=== PATIENT | female | born 1995 | race Caucasian/White ===

== ENCOUNTER 2017-05-06 01:44 | Inpatient (IN) | payer MEDICAID ==
[~2017-05-06] VITALS: Ht 152.4 cm; Wt 55.3 kg
[2017-05-06] MEDS ORDERED: OXYTOCIN/NORMAL SALINE 1,000 ML IV SCH (02:16)
[2017-05-06] MEDS ORDERED: LR 1,000 ML IV ONE (02:16)
[2017-05-06] MEDS ORDERED: TERBUTALINE SULFATE 1 MG/ML VIAL SUBCUT ONE (02:30)
[2017-05-06] MEDS: NALBUPHINE HCL 10 MG/ML AMP IVP PRN ×2 (02:43→06:13)
[2017-05-06] MEDS: LR 1,000 ML IV SCH ×3 (02:51→16:55)
[2017-05-06 03:00] LABS: BASOPHILS # (AUTO) 0.1 K/uL (0.0-0.2); BASOPHILS % (AUTO) 0.4 % (0.0-2.0); EOSINOPHILS % (AUTO) 0.1 % (0.0-4.0); HEMATOCRIT 35.2 % (36-48); HEMOGLOBIN 10.9 g/dL (12.0-16.0); LYMPHOCYTES # (AUTO) 1.8 K/uL (1.0-5.5); LYMPHOCYTES % (AUTO) 10.7 % (20.5-51.5); MEAN CORPUSCULAR HEMOGLOBIN 24 pg (27-31); MEAN CORPUSCULAR HGB CONC 31 % (32-36); MEAN CORPUSCULAR VOLUME 77 fL (79.0-98.0); MONOCYTES # (AUTO) 0.9 K/uL (0.0-1.0); MONOCYTES % (AUTO) 5.6 % (1.7-9.3); NEUTROPHILS % (AUTO) 83.2 % (40.0-70.0); PLATELET COUNT (AUTO) 211 K/uL (130-430); RED BLOOD CELL COUNT(AUTO) 4.59 MIL/uL (4.2-6.2); WHITE BLOOD COUNT (AUTO) 16.8 K/uL (4.8-10.8)
[2017-05-06 04:10] VITALS: BP_SYST 113
[2017-05-06] MEDS ORDERED: FENT2mCg/mL-ROPIVA0.2%/NS EPID 150 ML EP ONE (09:06)
[2017-05-06] MEDS ORDERED: fentaNYL CITRATE/PF 100 MCG/2 ML AMP ONE (09:08)
[2017-05-06] MEDS ORDERED: fentaNYL CITRATE/PF 100 MCG/2 ML AMP EP ONE (09:30)
[2017-05-06] MEDS ORDERED: FENT2mCg/mL-ROPIVA0.2%/NS EPID 150 ML EP SCH (09:30)
[2017-05-06] MEDS ORDERED: LR 500 ML IV ONE (09:30)
[2017-05-06] MEDS ORDERED: ePHEDrine sulfate 50 MG/ML VIAL IVP PRN (09:30)
[2017-05-06] MEDS ORDERED: CEFAZOLIN 2 GM IVPB PREMIX 50 ML IV ONE ×2 (15:00→15:47)
[2017-05-06] MEDS ORDERED: OXYTOCIN/NORMAL SALINE 1,000 ML IV ONE ×2 (15:26→16:51)
[2017-05-06] MEDS ORDERED: HYDROcodone/ACETAMIN 5-325 MG TAB (NORCO/ VICODIN) PO PRN (15:30)
[2017-05-06] MEDS ORDERED: BISACODYL 10 MG/SUPPOSITORY RC PRN (15:30)
[2017-05-06] MEDS ORDERED: OXYCODONE/ACETAMINOPHEN 5-325 TABLET PO PRN (15:30)
[2017-05-06] MEDS ORDERED: ANUSOL 1 EA SUPP.RECT (PREPARATION H) RC PRN (15:30)
[2017-05-06] MEDS ORDERED: LANOLIN 7 GM OINT. TP PRN (15:30)
[2017-05-06] MEDS ORDERED: RHO(D) IMMUNE GLOBULIN/MALTOSE 1500 UNITS/1.3 ML (WINHRO) IM PRN (15:30)
[2017-05-06] MEDS ORDERED: MEASLES,MUMPS&RUBELLA VACC/PF 12500 UNIT/0.5 ML VIAL SUBQ PRN (15:30)
[2017-05-06 17:04] VITALS: BP_SYST 105
[2017-05-06] MEDS: KETOROLAC TROMETHAMINE 30 MG VIAL IVP SCH (20:15)
[2017-05-06] MEDS ORDERED: TEMAZEPAM 15 MG CAPSULE PO PRN (21:00)
[2017-05-07] MEDS: CEFAZOLIN 1 GM IVPB PREMIX 50 ML IV SCH ×3 (00:17→12:18)
[2017-05-07] MEDS ORDERED: HYDROmorphone 1 MG INJ. 1 MG/ML AMPUL IVP ONE ×2 (00:45→02:00)
[2017-05-07] MEDS ORDERED: HYDROmorphone 2 MG/ML VIAL IVP PRN (00:45)
[2017-05-07] MEDS: KETOROLAC TROMETHAMINE 30 MG VIAL IVP SCH ×3 (05:59→18:10)
[2017-05-07 07:18] LABS: BASOPHILS % (AUTO) 0.1 % (0.0-2.0); EOSINOPHILS % (AUTO) 0.1 % (0.0-4.0); MONOCYTES % (AUTO) 5.2 % (1.7-9.3)
[2017-05-07 07:24] LABS: HEMATOCRIT 27.3 % (36-48); HEMOGLOBIN 8.7 g/dL (12.0-16.0); LYMPHOCYTES # (AUTO) 2.5 K/uL (1.0-5.5); LYMPHOCYTES % (AUTO) 15.1 % (20.5-51.5); MEAN CORPUSCULAR HEMOGLOBIN 25 pg (27-31); MEAN CORPUSCULAR HGB CONC 32 % (32-36); MEAN CORPUSCULAR VOLUME 77 fL (79.0-98.0); MONOCYTES # (AUTO) 0.9 K/uL (0.0-1.0); NEUTROPHILS # (AUTO) 13.1 K/uL (1.8-7.7); NEUTROPHILS % (AUTO) 79.5 % (40.0-70.0); PLATELET COUNT (AUTO) 161 K/uL (130-430); RED BLOOD CELL COUNT(AUTO) 3.56 MIL/uL (4.2-6.2); RED CELL DISTRIBUTION WIDTH 13.8 % (9.0-15.0); WHITE BLOOD COUNT (AUTO) 16.5 K/uL (4.8-10.8)
[2017-05-07] MEDS: LR 1,000 ML IV SCH (09:45)
[2017-05-07] MEDS: DOCUSATE SODIUM 100 MG CAPSULE PO PRN (09:53)
[2017-05-07] MEDS: SIMETHICONE 80 MG TAB.CHEW PO PRN ×2 (09:54→18:59)
[2017-05-07] MEDS: OXYCODONE/ACETAMINOPHEN 5-325 TABLET PO PRN (18:58)
[2017-05-07] MEDS ORDERED: BISACODYL 10 MG/SUPPOSITORY RC ONE (19:00)
[2017-05-07] MEDS: IBUPROFEN 600 MG TABLET PO SCH (23:56)
[2017-05-08] MEDS: IBUPROFEN 600 MG TABLET PO SCH ×3 (06:08→18:25)
[2017-05-08] MEDS: OXYCODONE/ACETAMINOPHEN 5-325 TABLET PO PRN ×3 (08:22→15:58)
[2017-05-08] MEDS: DOCUSATE SODIUM 100 MG CAPSULE PO PRN (08:23)
[2017-05-08] MEDS: SENNOSIDES/DOCUSATE SODIUM 1 TAB TABLET(SENOKOT-S) PO PRN (08:24)
[2017-05-08] MEDS: SIMETHICONE 80 MG TAB.CHEW PO PRN ×3 (08:25→15:59)
[2017-05-08] MEDS: BISACODYL 10 MG/SUPPOSITORY RC PRN ×2 (09:56→16:18)
[2017-05-09] MEDS: DOCUSATE SODIUM 100 MG CAPSULE PO PRN (00:09)
[2017-05-09] MEDS: SIMETHICONE 80 MG TAB.CHEW PO PRN ×2 (00:10→05:05)
[2017-05-09] MEDS: IBUPROFEN 600 MG TABLET PO SCH ×3 (00:10→12:51)
[2017-05-09] MEDS: SENNOSIDES/DOCUSATE SODIUM 1 TAB TABLET(SENOKOT-S) PO PRN (00:10)
[2017-05-09] MEDS ORDERED: ROPIVACAINE 40 MG/20 ML AMP EP ONE (14:59)
== END 2017-05-09 15:00 | disposition home or self-care (01) | DRG 540 ==
LOC: SPU 01:44
PROVIDERS: ADMIT Obstetrics & Gynecology; ATTEND Obstetrics & Gynecology
PROC: 3E0134Z Introduction of Serum, Toxoid and Vaccine into Subcutaneous Tissue, Percutaneous Approach (ICD-10-PCS; 2017-05-06)
PROC: 10D00Z1 Extraction of Products of Conception, Low, Open Approach (ICD-10-PCS; principal; 2017-05-06 15:30)
DX: O33.9 Maternal care for disproportion, unspecified (principal); K56.7 Ileus, unspecified; O64.0XX0 Obstructed labor due to incomplete rotation of fetal head, not applicable or unspecified; O99.63 Diseases of the digestive system complicating the puerperium; O76 Abnormality in fetal heart rate and rhythm complicating labor and delivery; O62.2 Other uterine inertia; O69.1XX0 Labor and delivery complicated by cord around neck, with compression, not applicable or unspecified; Z3A.40 40 weeks gestation of pregnancy; Z37.0 Single live birth; Z23 Encounter for immunization
CPT/HCPCS: 36415; 81002-TC; 85025; 86592; 86886; 86900; 86901; 94760; J0690; J1170; J1885; J2300; J2590; J2795; J3010